=== PATIENT | male | born 1935 | race Two or more races ===

== ENCOUNTER 2018-04-12 09:22 | Day surgery (SDC) | payer OTHER | END 2018-04-12 17:35 | disposition home or self-care (01) | LOC: AMB-ENDOS 09:22 | DX: C20 Malignant neoplasm of rectum (principal); K64.1 Second degree hemorrhoids ==

== ENCOUNTER 2018-10-25 12:34 | Day surgery (SDC) | payer OTHER | END 2018-10-25 17:41 | disposition home or self-care (01) | LOC: AMB-ENDOS 12:34 | DX: K57.30 Diverticulosis of large intestine without perforation or abscess without bleeding (principal) ==